=== PATIENT | female | born 1955 | race Caucasian/White ===

== ENCOUNTER → 2017-03-07 | Outpatient (CLI) | payer MEDICARE, MEDICAID ==
[~2017-03-07] MED LIST: AMBIEN 10MG TAB10 MG PO; AUGMENTIN 875-1 EACH PO; BUTALBITAL, ACE1 TA1 PO; CIPROFLOXACIN500 M2 PO; CITALOPRAM HYDR10 MG PO; HYDROCODONE-APA1 TA1 PO; LIPITOR20 MG PO; NEURONTIN100 MG OR
== END ==
LOC: LAB 15:17
DX: R79.81 Abnormal blood-gas level (principal); Z79.899 Other long term (current) drug therapy